=== PATIENT | female | born 1985 | race African-American/Black ===

== ENCOUNTER 2016-04-11 09:21 | Emergency (ER) | payer MEDICAID, OTHER ==
[~2016-04-11] VITALS: Ht 157.5 cm; Wt 52.2 kg
[~2016-04-11 09:21] MED LIST: NKM
[2016-04-11 09:50] VITALS: BP 104/62
[2016-04-11] MEDS ORDERED: Norco 5mg/325mg tab PO ONE (10:00)
--- NOTE | 2016-04-11 11:09 | Diagnostic Imaging Report ---
Indication: PAIN. Slip and fall injury earlier this morning. Right-sided neck pain Technique: Spiral acquisitions obtained through the cervical spine. No IV contrast utilized. Multiplanar reconstructions were generated. Total dose length product 244 mGycm. CTDIvol(s) mGy Comparison: None Findings: Bony alignment is normal. No prevertebral soft tissue swelling. No acute fractures. No dislocations. Vertebral body heights and disc spaces are preserved. No significant disc bulge or protrusion, spinal stenosis, or neural foraminal stenosis. The included extraspinal soft tissues are unremarkable. Impression: Negative The CT scanner at [facility] is accredited by the [employer] and the scans are performed using protocols designed to limit radiation exposure to as low as reasonably achievable to attain images of sufficient resolution adequate for diagnostic evaluation.
[2016-04-11] MEDS ORDERED: IBUPROFEN600 MG ORAL (11:42)
[2016-04-11] MEDS ORDERED: NORCO 5-325 TA1 EACH ORAL (11:42)
[2016-04-11 11:51] VITALS: BP 114/68
--- NOTE | 2016-04-11 12:05 | Diagnostic Imaging Report ---
Indication: PAIN Technique: Multiple views of the right ribs Comparison: None Findings: There are fractures of the posterior lateral ninth and 10th ribs. None acute fractures. No dislocations. No gross pneumothorax. Impression: Positive for right ninth and 10th rib fractures Findings discussed by phone with Dr. Natarajan in the emergency room at the time of interpretation
--- NOTE | 2016-04-11 14:45 | Emergency Room Report ---
History of Present Illness General Chief Complaint: Lower Back Pain or Injury Source: Patient Present Illness HPI 30-year-old female presents ED complaining of neck pain and right-sided rib pain. States at morning she had mechanical slip and fall in the shower. States she injured her neck and has pain over her right ribs. Denies LOC. Complaining of pain to her neck and right side of ribs. Pain as throbbing. 10 of 10. Worse with movement. Worse with deep breaths. No other aggravating or relieving factors. Denies any other injuries. Denies any other associated symptoms Allergies: Coded Allergies: No Known Allergies (Unverified , 11/26/13) Patient History Past Medical History: none Past Surgical History: none Pertinent Family History: none Social History: Denies: alcohol use, drug use, smoking Last Menstrual Period: 03/11/16 Now: No Immunizations: UTD Reviewed Nursing Documentation: PMH: Agreed, PSxH: Agreed Nursing Documentation-PMH Past Medical History: No Stated History Review of Systems All Other Systems: negative except mentioned in HPI Physical Exam Vital Signs Date Time Temp Pulse Resp B/P Pulse Ox O2 Delivery O2 Flow Rate FiO2 04/11/16 09:27 97.9 89 18 109/62 98 Room Air Sp02 EP Interpretation: reviewed, normal General Appearance: alert, GCS 15, non-toxic, mild distress Head: normocephalic Eyes: bilateral eye PERRL, bilateral eye normal inspection ENT: hearing grossly normal, normal pharynx, no angioedema, normal voice Neck: tender lateral, tender midline Respiratory: lungs clear, normal breath sounds, speaking full sentences, other - R sided rib pain TTP Cardiovascular #1: regular rate, rhythm, no edema Gastrointestinal: normal bowel sounds, non tender, soft, non-distended, no guarding, no rebound Rectal: deferred Genitourinary: no CVA tenderness Musculoskeletal: normal inspection Neurologic: alert, oriented x3, responsive, motor strength/tone normal, sensory intact, speech normal Psychiatric: normal inspection Skin: normal inspection Lymphatic: normal inspection Medical Decision Making Diagnostic Impression: Primary Impression: Rib fracture Qualified Codes: S22.41XA - Multiple fractures of ribs, right side, initial encounter for closed fracture Additional Impression: Fall Qualified Codes: W19.XXXA - Unspecified fall, initial encounter ER Course Hospital Course 30-year-old female presents to ED complaining of neck pain and right-sided rib pain status post fall in shower Differential diagnoses include: Fracture, dislocation, sprain, contusion Clinical course Patient placed on stretcher. After initial history and physical, I ordered pain medications and CT C-spine, x-rays of right rib series CT C-spine unremarkable. X-rays showed ninth and 10th rib fractures. No pneumothorax On reassessment pain is improved Diagnosis - rib fracture, fall Stable and discharged to home with prescription for Motrin, [place]. apply ice, keep elevated. weight bear as tolerated. Followup with PMD. Return to ED if symptoms recur or worsen Other X-Ray Diagnostic Results Other X-Ray Diagnostic Results : X-Ray Ordered: R rib series EP Interpretation: No Findings: no dislocation, no soft tissue swelling, other - 9th and 10th rib fractures Number of Views: 3 CT/MRI/US Diagnostic Results CT/MRI/US Diagnostic Results : Imaging Test Ordered: CT C spine Impression no acute process Last Vital Signs Date Time Temp Pulse Resp B/P Pulse Ox O2 Delivery O2 Flow Rate FiO2 04/11/16 11:51 85 14 114/68 97 Room Air 04/11/16 11:10 97.9 Disposition: HOME, SELF-CARE Condition: Stable Scripts Hydrocodone Bit/Acetaminophen 5-325* (NORCO 5-325*) 1 Each Tablet 1 TAB ORAL Q6H Y for For Pain, #10 TAB 0 Refills Prov: CHARLES LAMBERT M.D. 04/11/16 Ibuprofen* (MOTRIN*) 600 Mg Tablet 600 MG ORAL Q8H Y for For Pain, #30 TAB 0 Refills Prov: CHARLES LAMBERT M.D. 04/11/16 Departure Forms: Return to Work Return to Work Date: Apr 14, 2016 Work Restrictions: No Heavy Lifting Patient Instructions: Rib Fracture CHARLES LAMBERT M.D. Apr 11, 2016 14:45
== END 2016-04-11 11:54 | disposition home or self-care (01) ==
LOC: EMR 10:00
DX: S22.41XA Multiple fractures of ribs, right side, initial encounter for closed fracture (principal); W01.0XXA Fall on same level from slipping, tripping and stumbling without subsequent striking against object, initial encounter; Y92.012 Bathroom of single-family (private) house as the place of occurrence of the external cause
CPT/HCPCS: 72125; 81025; 99284

== ENCOUNTER 2016-06-25 10:12 | Emergency (ER) | payer BC, MEDICAID, OTHER ==
[~2016-06-25] VITALS: Ht 157.5 cm; Wt 54.4 kg
[~2016-06-25 10:12] MED LIST changes: +IBUPROFEN600 MG ORAL; +NORCO 5-325 TA1 EACH ORAL
--- NOTE | 2016-06-25 10:32 | Emergency Room Report ---
History of Present Illness General Chief Complaint: Upper Respiratory Illness Source: Patient Present Illness HPI Patient 31-year-old female presented after increased difficulty breathing cough. Patient gradual onset of symptoms. Patient reported having intermittent pain or chest worse with deep breath. She reported having associated chills. She reported having some productive cough. She had not been vomiting. She reported having some epigastric abdominal pain. She states she is not and has an IUD Allergies: Coded Allergies: No Known Allergies (Unverified , 11/26/13) Patient History Past Medical History: see triage record, old chart reviewed Last Menstrual Period: Mar 2016 Now: No - IUD cycle irregular Reviewed Nursing Documentation: PMH: Agreed, PSxH: Agreed Nursing Documentation-PMH Past Medical History: No Stated History Review of Systems All Other Systems: negative except mentioned in HPI Physical Exam Vital Signs Date Time Temp Pulse Resp B/P Pulse Ox O2 Delivery O2 Flow Rate FiO2 06/25/16 10:23 99.0 106 16 105/69 98 Room Air General Appearance: well appearing, no apparent distress, alert, GCS 15 Head: normocephalic, atraumatic ENT: hearing grossly normal, normal voice Neck: full range of motion, supple Respiratory: no respiratory distress, speaking full sentences Cardiovascular #1: normal inspection, regular rate, rhythm, no edema Gastrointestinal: normal inspection, non tender, soft Musculoskeletal: normal inspection, back normal, no calf tenderness Neurologic: normal inspection, alert, oriented x3, responsive, lead javascript developer III-XII nml as tested, normal gait Psychiatric: mood/affect normal Skin: no rash Medical Decision Making Diagnostic Impression: Primary Impression: Acute viral bronchitis ER Course Patient presented for cough. Differential diagnosis included but was not limited to bronchitis, pneumonia, pulmonary embolism, pericarditis, asthma, foreign body. Chest x-ray was ordered due to patient's symptoms. Chest X-Ray Diagnostic Results EP Interpretation: Yes Findings: no consolidation, no effusion, no pneumothorax, no acute cardiopulmonary disease Number of Views: 1 Last Vital Signs Date Time Temp Pulse Resp B/P Pulse Ox O2 Delivery O2 Flow Rate FiO2 06/25/16 10:23 99.0 106 16 105/69 98 Room Air Status: improved Disposition: HOME, SELF-CARE Condition: Stable Scripts Ibuprofen* (MOTRIN*) 600 Mg Tablet 600 MG ORAL Q8H Y for For Pain, #30 TAB 0 Refills Prov: Pawan Ramesh 06/25/16 Pawan Ramehs June 25, 2016 10:32
[2016-06-25] MEDS ORDERED: IBUPROFEN600 MG ORAL (11:03)
--- NOTE | 2016-06-25 11:11 | Diagnostic Imaging Report ---
Indication: Chest Pain Comparison: None A single view chest radiograph was obtained. Findings: Cardiomediastinal appearance is within normal limits for age. Pulmonary vascularity is appropriate. The diaphragmatic contour is smooth and costophrenic angles are sharp. No pleural effusions are identified. The bones are unremarkable. Impression: No acute findings
[2016-06-25 11:15] VITALS: BP_SYST 108; BP_SYST 128; BP_DIAS 70
== END 2016-06-25 11:15 | disposition home or self-care (01) ==
LOC: EMR 10:35
DX: J20.8 Acute bronchitis due to other specified organisms (principal); R07.1 Chest pain on breathing; Z97.5 Presence of (intrauterine) contraceptive device; R10.13 Epigastric pain
CPT/HCPCS: 71010; 99283

== ENCOUNTER 2016-09-09 13:37 | Emergency (ER) | payer SELFPAY ==
[~2016-09-09] VITALS: Ht 162.6 cm; Wt 54.4 kg
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
[2016-09-09 13:57] VITALS: BP 115/84
[2016-09-09] MEDS ORDERED: LORazepam Inj 2mg/ml 1ml IM ONE (14:00)
[2016-09-09] MEDS ORDERED: Haloperidol 5mg/ml Inj IM ONE (14:00)
[2016-09-09 14:15] VITALS: BP 137/68
[2016-09-09 14:30] VITALS: BP 121/67
[2016-09-09 14:45] VITALS: BP 120/67
[2016-09-09 14:56] LABS: BASOPHILS % (AUTO) 0.8 % (0.0-2.0); EOSINOPHILS % (AUTO) 1.1 % (0.0-3.0); LYMPHOCYTES % (AUTO) 21.6 % (20.0-45.0); MEAN CORPUSCULAR HEMOGLOBIN 31.6 PG (27.0-31.0); MEAN CORPUSCULAR HGB CONC 34.1 G/DL (32.0-36.0); MEAN CORPUSCULAR VOLUME 93 FL (80-99); MEAN PLATELET VOLUME 7.9 FL (6.5-10.1); MONOCYTES % (AUTO) 7.2 % (1.0-10.0); NEUTROPHILS % (AUTO) 69.5 % (45.0-75.0); PLATELET COUNT 215 K/UL (150-450); RED BLOOD COUNT 5.04 M/UL (4.20-5.40); RED CELL DISTRIBUTION WIDTH 11.2 % (11.6-14.8); WHITE BLOOD COUNT 12.9 K/UL (4.8-10.8)
[2016-09-09 15:09] LABS: ACETAMINOPHEN < 10 ug/mL (10-30); ALANINE AMINOTRANSFERASE 8 U/L (3-33); ALBUMIN/GLOBULIN RATIO 1.5 (1.0-2.7); ALCOHOL < 10 mg/dL; ANION GAP 14 (5-15); ASPARTATE AMINO TRANSFERASE 18 U/L (5-40); CALCIUM 9.2 mg/dL (8.6-10.2); CARBON DIOXIDE 20 mEQ/L (20-30); CHLORIDE 103 mEQ/L (98-107); CREATININE 0.9 mg/dL (0.5-0.9); GLOMERULAR FILTRATION RATE > 60 mL/min (>60); HEMOLYSIS 6; POTASSIUM 3.5 mEQ/L (3.4-4.9); SODIUM 137 mEQ/L (135-145); TOTAL PROTEIN 7.7 g/dL (6.6-8.7)
[2016-09-09 15:45] LABS: BILIRUBIN,DIRECT 0.2 mg/dL (0.1-0.3)
[2016-09-09 17:11] VITALS: BP 105/79
[2016-09-09 17:54] LABS: APPEARANCE,URINE CLEAR; KETONES,URINE 2+ (NEGATIVE); LEUKOCYTE ESTERASE ,URINE 3+ (NEGATIVE); NITRITE,URINE NEGATIVE (NEGATIVE); PH,URINE 5 (4.5-8.0); PROTEIN,URINE 2+ (NEGATIVE); UROBILINOGEN,URINE 1 MG/DL (0.0-1.0)
[2016-09-09 18:16] LABS: BACTERIA,URINE FEW /HPF; RBC,URINE 0-2 /HPF (0 - 2); SQUAMOUS EPITHELIAL CELL,UR FEW /LPF (NONE/OCC)
[2016-09-09 20:30] VITALS: BP 112/82
== END 2016-09-09 20:30 ==
LOC: EDBD 13:37 → EMR 14:56
DX: F91.9 Conduct disorder, unspecified (principal); F31.9 Bipolar disorder, unspecified; F12.10 Cannabis abuse, uncomplicated; Z78.1 Physical restraint status
CPT/HCPCS: 36415; 80053; 80300; 81003; 81025; 82248; 85025; 96372; 99285; G0480; J1630; 80329

== ENCOUNTER 2017-11-22 20:05 | Emergency (ER) | payer SELFPAY ==
[~2017-11-22] VITALS: Ht 157.5 cm; Wt 58.1 kg
--- NOTE | 2017-11-22 20:45 | Emergency Room Report ---
History of Present Illness General Chief Complaint: Abdominal Pain Source: Patient Present Illness HPI Patient presents with nausea and vomiting. She ran out of her Zyprexa and has been feeling agitated. In response she took 4 of her Wellbutrin earlier today. This caused her to vomit. She took the pills at 1600. She did not want to harm herself. Her doctor told her that if Wellbutrin one pill wasn't working to take a second one. She took 3 more. She says Zyprexa usually keeps her from being manic. She started feeling manic today and started feeling she wanted to throw things, hit things and break things. She denies homicidal ideation. She states she's not been eating well but has been sleeping without difficulty. She rates the abdominal pain as 4/10, but states this is more nausea. Patient has an IUD in hasn't had a period for several months. She doesn't believe she is at this time. No fevers, chills, headache, change in vision, rashes, cough, sore throat, diarrhea, dysuria. Allergies: Coded Allergies: No Known Allergies (Unverified , 11/26/13) Patient History Past Medical History: see triage record Social History: Reports: smoking, drug use - THC; Denies: alcohol use Social History Narrative Lives with her aunt Last Menstrual Period: IUD Now: No : 3 Para: 3 Reviewed Nursing Documentation: PMH: Agreed; PSxH: Agreed Nursing Documentation-PMH History Of Psychiatric Problem: Yes - Bipolar Disorder Review of Systems All Other Systems: negative except mentioned in HPI Physical Exam Vital Signs Date Time Temp Pulse Resp B/P (MAP) Pulse Ox O2 Delivery O2 Flow Rate FiO2 11/22/17 20:18 97.5 125 15 99/55 95 Room Air 97.5 Sp02 EP Interpretation: reviewed, normal General Appearance: well appearing, no apparent distress, GCS 15 Head: normocephalic Eyes: bilateral eye normal inspection, bilateral eye PERRL, bilateral eye Scleral Injection ENT: moist mucus membranes Neck: supple Respiratory: lungs clear, normal breath sounds Cardiovascular #1: regular rate, rhythm Cardiovascular #2: 2+ radial (R) Gastrointestinal: normal inspection, normal bowel sounds, non tender, no mass, non-distended, scaphoid Musculoskeletal: back normal, gait/station normal, normal range of motion Neurologic: alert, oriented x3, grossly normal Psychiatric: mood/affect normal, no suicidal/homicidal ideation Skin: normal inspection, warm/dry Medical Decision Making Diagnostic Impression: Primary Impression: Medication overdose Qualified Codes: T50.904A - Poisoning by unspecified drugs, medicaments and biological substances, undetermined, initial encounter Additional Impressions: Hypokalemia Bipolar disorder Qualified Codes: F31.62 - Bipolar disorder, current episode mixed, moderate ER Course Patient presents with taking excessive Wellbutrin and history of bipolar disorder that she feels unstable. I differential includes excessive antipsychotic, arrhythmia, regnancy, gastroenteritis, gastritis, pancreatitis amongst others. Patient will be evaluated with EKG, labs. In addition to that she'll be treated with IV hydration, Pepcid and Zofran. Labs significant for CBC with slightly high WBC. CMP with low potassium. Tox + THC. Preg neg. Potassium ordered. No more nausea. Patient signed out to Dr. Agarwal. Laboratory Tests Test 11/22/17 20:45 11/22/17 21:32 White Blood Count 11.9 K/UL (4.8-10.8) H Red Blood Count 4.70 M/UL (4.20-5.40) Hemoglobin 15.0 G/DL (12.0-16.0) Hematocrit 43.2 % (37.0-47.0) Mean Corpuscular Volume 92 FL (80-99) Mean Corpuscular Hemoglobin 31.9 PG (27.0-31.0) H Mean Corpuscular Hemoglobin Concent 34.7 G/DL (32.0-36.0) Red Cell Distribution Width 11.1 % (11.6-14.8) L Platelet Count 248 K/UL (150-450) Mean Platelet Volume 7.0 FL (6.5-10.1) Neutrophils (%) (Auto) 69.9 % (45.0-75.0) Lymphocytes (%) (Auto) 21.3 % (20.0-45.0) Monocytes (%) (Auto) 6.0 % (1.0-10.0) Eosinophils (%) (Auto) 1.3 % (0.0-3.0) Basophils (%) (Auto) 1.5 % (0.0-2.0) Sodium Level 138 MMOL/L (136-145) Potassium Level 2.9 MMOL/L (3.5-5.1) L Chloride Level 104 MMOL/L (98-107) Carbon Dioxide Level 21 MMOL/L (21-32) Anion Gap 13 mmol/L (5-15) Blood Urea Nitrogen 12 mg/dL (7-18) Creatinine 1.3 MG/DL (0.55-1.30) Estimate Glomerular Filtration Rate 57.6 mL/min (>60) Glucose Level 160 MG/DL (74-106) H Calcium Level 9.1 MG/DL (8.5-10.1) Total Bilirubin 0.8 MG/DL (0.2-1.0) Aspartate Amino Transferase (AST) 23 U/L (15-37) Alanine Aminotransferase (ALT) 26 U/L (12-78) Alkaline Phosphatase 95 U/L (46-116) Total Creatine Kinase 197 U/L (26-308) Total Protein 8.4 G/DL (6.4-8.2) H Albumin 4.3 G/DL (3.4-5.0) Globulin 4.1 g/dL Albumin/Globulin Ratio 1.0 (1.0-2.7) Salicylates Level 5.0 ug/mL (2.8-20) Acetaminophen Level < 2 MCG/ML (10-30) L Serum Alcohol < 3 mg/dL Urine Color [place]aye Urine Appearance Slightly cloudy Urine pH 5 (4.5-8.0) Urine Specific [place] 1.030 (1.005-1.035) Urine Protein 2+ (NEGATIVE) H Urine Glucose (UA) Negative (NEGATIVE) Urine Ketones 1+ (NEGATIVE) H Urine Blood Negative (NEGATIVE) Urine Nitrite Negative (NEGATIVE) Urine Bilirubin Negative (NEGATIVE) Urine Ictotest Negative (NEGATIVE) Urine Urobilinogen Normal MG/DL (0.0-1.0) Urine Leukocyte Esterase 1+ (NEGATIVE) H Urine RBC 0-2 /HPF (0 - 2) Urine WBC 2-4 /HPF (0 - 2) Urine Squamous Epithelial Cells Many /LPF (NONE/OCC) H Urine Amorphous Sediment Moderate /LPF (NONE) H Urine Bacteria Moderate /HPF (NONE) H Urine HCG, Qualitative Negative (NEGATIVE) Urine Opiates Screen Negative (NEGATIVE) Urine Barbiturates Screen Negative (NEGATIVE) Phencyclidine (PCP) Screen Negative (NEGATIVE) Urine Amphetamines Screen Negative (NEGATIVE) Urine Benzodiazepines Screen Negative (NEGATIVE) Urine Cocaine Screen Negative (NEGATIVE) Urine Marijuana (THC) Screen Positive (NEGATIVE) H EKG Diagnostic Results Rate: normal Rhythm: NSR ST Segments: no acute changes Rhythm Strip Diag. Results EP Interpretation: yes Rhythm: NSR, no PVC's, no ectopy Last Vital Signs Date Time Temp Pulse Resp B/P (MAP) Pulse Ox O2 Delivery O2 Flow Rate FiO2 11/22/17 23:27 98.0 90 18 110/67 100 Room Air Status: improved Scripts Olanzapine (ZYPREXA) 15 Mg Tablet 15 MG ORAL DAILY, #30 TAB 0 Refills Prov: Kirk Agarwal M.D. 11/22/17 Livan Melendrez M.D. Nov 22, 2017 20:44
[2017-11-22 20:55] VITALS: BP 89/62
[2017-11-22 21:16] LABS: BASOPHILS % (AUTO) 1.5 % (0.0-2.0); EOSINOPHILS % (AUTO) 1.3 % (0.0-3.0); HEMATOCRIT 43.2 % (37.0-47.0); LYMPHOCYTES % (AUTO) 21.3 % (20.0-45.0); MEAN CORPUSCULAR VOLUME 92 FL (80-99); NEUTROPHILS % (AUTO) 69.9 % (45.0-75.0); PLATELET COUNT 248 K/UL (150-450); RED CELL DISTRIBUTION WIDTH 11.1 % (11.6-14.8); WHITE BLOOD COUNT 11.9 K/UL (4.8-10.8)
[2017-11-22 21:54] LABS: ANION GAP 13 mmol/L (5-15); BLOOD UREA NITROGEN 12 mg/dL (7-18); CALCIUM 9.1 MG/DL (8.5-10.1); CARBON DIOXIDE 21 MMOL/L (21-32); CHLORIDE 104 MMOL/L (98-107); CREATININE 1.3 MG/DL (0.55-1.30); POTASSIUM 2.9 MMOL/L (3.5-5.1); SODIUM 138 MMOL/L (136-145)
[2017-11-22 22:00] LABS: ALANINE AMINOTRANSFERASE 26 U/L (12-78); ALBUMIN 4.3 G/DL (3.4-5.0); ALKALINE PHOSPHATASE 95 U/L (46-116); ASPARTATE AMINO TRANSFERASE 23 U/L (15-37); BILIRUBIN,TOTAL 0.8 MG/DL (0.2-1.0); CREATINE KINASE 197 U/L (26-308)
[2017-11-22 22:04] LABS: APPEARANCE,URINE SLIGHTLY CLOUDY; BILIRUBIN, URINE NEGATIVE (NEGATIVE); COLOR,URINE AMBER; GLUCOSE, URINE (UA) NEGATIVE (NEGATIVE); KETONES,URINE 1+ (NEGATIVE); LEUKOCYTE ESTERASE ,URINE 1+ (NEGATIVE); NITRITE,URINE NEGATIVE (NEGATIVE); PH,URINE 5 (4.5-8.0); PROTEIN,URINE 2+ (NEGATIVE); UROBILINOGEN,URINE NORMAL MG/DL (0.0-1.0)
[2017-11-22] MEDS ORDERED: ZYPREXA15 MG ORAL (23:13)
--- NOTE | 2017-11-22 23:16 | Emergency Room Report ---
Physical Exam Vital Signs Date Time Temp Pulse Resp B/P (MAP) Pulse Ox O2 Delivery O2 Flow Rate FiO2 11/22/17 20:18 97.5 125 15 99/55 95 Room Air 97.5 Medical Decision Making Diagnostic Impression: Primary Impression: Medication overdose Qualified Codes: T50.904A - Poisoning by unspecified drugs, medicaments and biological substances, undetermined, initial encounter Additional Impressions: Bipolar disorder Qualified Codes: F31.62 - Bipolar disorder, current episode mixed, moderate Hypokalemia ER Course Previous MD requested dispo if stable.] For me, patient has been alert and oriented and cooperative. She is requesting refill of her Zyprexa (this is why she came to ED.) Zyprexa written. Return if new or worse symptoms. Take medication as prescribed. Emergency departments do not prescribe medications for chronic conditions. You need to see a primary physician. Look on your Medical card for the doctor/ clinic name and/or phone number to find one. Here are some other options: [facility], [facility], [facility], [facility], [facility]. Also for psychiatric care, mental health clinics: [facility], [facility], [facility]. [place] [address] [facility]. [phone] Last Vital Signs Date Time Temp Pulse Resp B/P (MAP) Pulse Ox O2 Delivery O2 Flow Rate FiO2 11/22/17 20:55 97.5 96 20 89/62 96 Room Air 97.5 Status: improved Disposition: HOME, SELF-CARE Condition: Stable Scripts Olanzapine (ZYPREXA) 15 Mg Tablet 15 MG ORAL DAILY, #30 TAB 0 Refills Prov: Kirk Agarwal M.D. 11/22/17 Referrals: NOT CHOSEN IPA/,REFERRING (PCP) Patient Instructions: Psychosis iKrk Agarwal M.D. Nov 22, 2017 23:16
[2017-11-22 23:27] VITALS: BP 110/67
--- NOTE | 2017-11-24 14:45 | Cardiology Report ---
APPROVED REPORT EKG Measurement Heart [id number] DC [id number] [id number] Normal sinus rhythm Possible Left atrial enlargement Nonspecific T wave abnormality Abnormal ECG
== END 2017-11-22 23:27 | disposition home or self-care (01) ==
LOC: EMR 22:19
DX: T43.291A Poisoning by other antidepressants, accidental (unintentional), initial encounter (principal); R11.2 Nausea with vomiting, unspecified; E87.6 Hypokalemia; F31.62 Bipolar disorder, current episode mixed, moderate; Y92.099 Unspecified place in other non-institutional residence as the place of occurrence of the external cause
CPT/HCPCS: 36415; 80053; 80307; 81003; 81025; 82550; 85025; 87086; 93005; 96361; 96374; 96375; 99284; G0480; J2405; J3480; S0028; 80329; J8499

== ENCOUNTER 2019-01-18 15:05 | Emergency (ER) | payer MEDICAID ==
[~2019-01-18] VITALS: Ht 157.5 cm; Wt 56.7 kg
[~2019-01-18 15:05] MED LIST changes: +ZYPREXA15 MG ORAL
[2019-01-18 15:15] VITALS: BP 108/75
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
--- NOTE | 2019-01-18 15:40 | Emergency Room Report ---
History of Present Illness General Chief Complaint: Abdominal Pain Source: Patient Present Illness HPI Patient presents with complaints of persistent nausea vomiting since 5 in the morning Reports that she had drank alcohol the night before which she usually does not do since then has had increased nausea vomiting some mild epigastric cramping Denies any chest pain or shortness of breath denies any lower abdominal pain denies any fevers denies any focal weakness Allergies: Coded Allergies: No Known Allergies (Unverified , 11/26/13) Patient History Past Medical History: see triage record Reviewed Nursing Documentation: PMH: Agreed; PSxH: Agreed Nursing Documentation-PMH Past Medical History: No Stated History Review of Systems All Other Systems: negative except mentioned in HPI Physical Exam Vital Signs Date Time Temp Pulse Resp B/P (MAP) Pulse Ox O2 Delivery O2 Flow Rate FiO2 01/18/19 15:08 98.2 90 18 111/70 (84) 99 Room Air Sp02 EP Interpretation: reviewed, normal General Appearance: no apparent distress Head: normocephalic, atraumatic Eyes: bilateral eye PERRL, bilateral eye EOMI ENT: hearing grossly normal, EOM grossly intact Neck: supple Respiratory: lungs clear, no retraction, no accessory muscle use Cardiovascular #1: regular rate, rhythm Gastrointestinal: soft - Some subjective discomfort pointing to the epigastric area otherwise soft and benign abdominal exam Genitourinary: no CVA tenderness Musculoskeletal: normal inspection Neurologic: alert, oriented x3 Psychiatric: normal inspection Skin: no rash Lymphatic: normal inspection Medical Decision Making Last Vital Signs Date Time Temp Pulse Resp B/P (MAP) Pulse Ox O2 Delivery O2 Flow Rate FiO2 01/18/19 15:08 98.2 90 18 111/70 (84) 99 Room Air Deanna Askew DO Jan 18, 2019 15:40
[2019-01-18 15:52] LABS: APPEARANCE,URINE CLEAR; BILIRUBIN, URINE NEGATIVE (NEGATIVE); COLOR,URINE PALE YELLOW; GLUCOSE, URINE (UA) NEGATIVE (NEGATIVE); KETONES,URINE 4+ (NEGATIVE); LEUKOCYTE ESTERASE ,URINE NEGATIVE (NEGATIVE); NITRITE,URINE NEGATIVE (NEGATIVE); PH,URINE 5 (4.5-8.0); PROTEIN,URINE 1+ (NEGATIVE); UROBILINOGEN,URINE NORMAL MG/DL (0.0-1.0)
[2019-01-18] MEDS ORDERED: LORazepam Inj 2mg/ml 1ml IV ONE (16:00)
[2019-01-18 16:02] LABS: ANION GAP 19 mmol/L (5-15); BLOOD UREA NITROGEN 16 mg/dL (7-18); CALCIUM 9.4 MG/DL (8.5-10.1); CARBON DIOXIDE 16 MMOL/L (21-32); CHLORIDE 102 MMOL/L (98-107); SODIUM 137 MMOL/L (136-145)
[2019-01-18 16:05] LABS: HEMATOCRIT 43.1 % (37.0-47.0); MEAN CORPUSCULAR VOLUME 91 FL (80-99); PLATELET COUNT 212 K/UL (150-450); RED BLOOD COUNT 4.71 M/UL (4.20-5.40); RED CELL DISTRIBUTION WIDTH 11.1 % (11.6-14.8); WHITE BLOOD COUNT 17.5 K/UL (4.8-10.8)
[2019-01-18 16:08] LABS: ALANINE AMINOTRANSFERASE 53 U/L (12-78); ALBUMIN 4.7 G/DL (3.4-5.0); ALBUMIN/GLOBULIN RATIO 1.2 (1.0-2.7); ALKALINE PHOSPHATASE 94 U/L (46-116); ASPARTATE AMINO TRANSFERASE 58 U/L (15-37); BILIRUBIN,TOTAL 0.8 MG/DL (0.2-1.0)
[2019-01-18] MEDS ORDERED: Omnipaque-300 100ml vial INJ PRN (17:30)
[2019-01-18 17:40] VITALS: BP 96/67
--- NOTE | 2019-01-18 18:57 | Diagnostic Imaging Report ---
Clinical Indication: Periumbilical pain Technique: No oral contrast utilized, per emergency room physician request IV administration nonionic contrast. Venous phase spiral acquisition obtained through the abdomen and pelvis. Multiplanar reconstructions were generated. Total dose length product for 162 mGycm. CTDIvol(s) 8 mGy. Dose reduction achieved using automated exposure control Comparison: none Findings: The appendix is only questionably demonstrated, probably normal. No evidence of colonic diverticulosis or diverticulitis. Left upper quadrant jejunal loops demonstrate wall thickening. No free or loculated intraperitoneal gas or fluid. No small bowel distention. Distal esophagus, stomach, duodenum are unremarkable. Liver demonstrates some focal fatty change in the usual location adjacent to the falciform ligament. The gallbladder, bile ducts, pancreas, spleen, adrenals are unremarkable. The kidneys demonstrate bilateral subcentimeter low-attenuation lesions which are too small to characterize. No retroperitoneal or mesenteric mass or adenopathy. No pelvic mass or adenopathy. There are prominent paraovarian varices. The left ovarian vein is dilated. There is an intrauterine device. The bladder is unremarkable. The bones are unremarkable except for some transitional lumbosacral anatomy. The included lung bases are clear Impression: Thickening of the wall of the proximal jejunum, could indicate enteritis. Correlate with clinical findings Prominent paraovarian varices, dilated left ovarian vein. This suggests ovarian venous insufficiency, which can be a cause of pelvic congestion syndrome. Correlate with clinical findings Intrauterine device Subcentimeter low-attenuation renal lesions, too small to characterize, most likely and I simple cysts Focal fatty change in the liver This agrees with the preliminary interpretation provided overnight by [facility] telerad[facility] service. The CT scanner at [facility] is accredited by the [employer] and the scans are performed using protocols designed to limit radiation exposure to as low as reasonably achievable to attain images of sufficient resolution adequate for diagnostic evaluation.
--- NOTE | 2019-01-18 19:06 | NUR ---
HAND-OFF: Report given to Nereida ENGLISH.
[2019-01-18] MEDS ORDERED: ZOFRAN4 M1 ORAL (20:05)
[2019-01-18 20:18] VITALS: BP 96/67
--- NOTE | 2019-01-18 20:18 | NUR ---
ER DISCHARGE NOTE: Patient is cleared to be discharged per ERMD, pt is aox4, on room air, with stable vital signs. pt was given dc and prescription instructions, pt was able to verbalize understanding, pt id band and iv site removed without complications. pt is able to ambulate with steady gait. pt took all belongings.
== END 2019-01-18 20:18 | disposition home or self-care (01) ==
LOC: EDUNIT# 15:05 → EDBD 15:05 → EMR 16:58
DX: R11.2 Nausea with vomiting, unspecified (principal)
CPT/HCPCS: 36415; 74177; 80053; 80307; 81003; 81025; 83690; 85007; 85025; 96361; 96374; 96375; J2405; J7030; Q9967; Z7502; 99284

== ENCOUNTER 2019-08-08 07:58 | Emergency (ER) | payer SELFPAY ==
[~2019-08-08] VITALS: Ht 167.6 cm; Wt 56.7 kg
[~2019-08-08 07:58] MED LIST changes: +ZOFRAN4 M1 ORAL
[2019-08-08 08:04] VITALS: BP 128/76
[2019-08-08] MEDS ORDERED: Metoclopramide 10mg/2ml Inj IVP ONE (08:30)
[2019-08-08] MEDS ORDERED: DiphenhydrAMINE 50mg/ml Inj IVP ONE (08:30)
[2019-08-08] MEDS ORDERED: LORazepam Inj 2mg/ml 1ml IV ONE (08:30)
[2019-08-08 09:03] LABS: BASOPHILS % (AUTO) 1.9 % (0.0-2.0); HEMATOCRIT 40.7 % (37.0-47.0); HEMOGLOBIN 13.7 G/DL (12.0-16.0); LYMPHOCYTES % (AUTO) 17.2 % (20.0-45.0); MEAN CORPUSCULAR VOLUME 95 FL (80-99); MONOCYTES % (AUTO) 8.6 % (1.0-10.0); NEUTROPHILS % (AUTO) 71.3 % (45.0-75.0); PLATELET COUNT 241 K/UL (150-450); RED BLOOD COUNT 4.28 M/UL (4.20-5.40); RED CELL DISTRIBUTION WIDTH 11.4 % (11.6-14.8); WHITE BLOOD COUNT 10.8 K/UL (4.8-10.8)
[2019-08-08 09:20] LABS: ALANINE AMINOTRANSFERASE 31 U/L (12-78); ALBUMIN 3.9 G/DL (3.4-5.0); ALBUMIN/GLOBULIN RATIO 1.1 (1.0-2.7); ALKALINE PHOSPHATASE 90 U/L (46-116); ANION GAP 12 mmol/L (5-15); ASPARTATE AMINO TRANSFERASE 31 U/L (15-37); BILIRUBIN,TOTAL 0.6 MG/DL (0.2-1.0); BLOOD UREA NITROGEN 12 mg/dL (7-18); CALCIUM 8.3 MG/DL (8.5-10.1); CARBON DIOXIDE 22 MMOL/L (21-32); CHLORIDE 105 MMOL/L (98-107); POTASSIUM 3.7 MMOL/L (3.5-5.1); SODIUM 139 MMOL/L (136-145)
[2019-08-08 09:31] LABS: APPEARANCE,URINE CLEAR; BILIRUBIN, URINE NEGATIVE (NEGATIVE); COLOR,URINE PALE YELLOW; GLUCOSE, URINE (UA) NEGATIVE (NEGATIVE); KETONES,URINE NEGATIVE (NEGATIVE); LEUKOCYTE ESTERASE ,URINE 1+ (NEGATIVE); NITRITE,URINE NEGATIVE (NEGATIVE); PH,URINE 9 (4.5-8.0); PROTEIN,URINE 1+ (NEGATIVE); UROBILINOGEN,URINE NORMAL MG/DL (0.0-1.0)
--- NOTE | 2019-08-08 09:49 | Emergency Room Report ---
History of Present Illness General Chief Complaint: Abdominal Pain Source: Patient, EMS Present Illness HPI Patient presents with complaints of lower mid suprapubic abdominal pain increased nausea vomiting patient reports that she drank heavier than usual last night taking ' shots of alcohol' Denies any chest pain denies any back or flank pain denies any dysuria or frequency denies any fall or trauma Allergies: Coded Allergies: No Known Allergies (Unverified , 02/20/19) COVID-19 Screening Contact w/high risk pt: No Recent Travel to affected area: No Experienced COVID-19 symptoms?: No COVID-19 Testing performed THERMAL TECHNICIAN: No Patient History Past Medical History: see triage record Now: No Reviewed Nursing Documentation: PMH: Agreed; PSxH: Agreed Nursing Documentation-PMH History Of Psychiatric Problem: Yes - Bipolar Review of Systems All Other Systems: negative except mentioned in HPI Physical Exam Vital Signs Date Time Temp Pulse Resp B/P (MAP) Pulse Ox O2 Delivery O2 Flow Rate FiO2 08/08/19 07:53 96.1 82 128/76 (93) 98 Room Air 08/08/19 08:02 18 Sp02 EP Interpretation: reviewed, normal General Appearance: mild distress - Appears nauseated and uncomfortable Head: normocephalic, atraumatic Eyes: bilateral eye PERRL, bilateral eye EOMI ENT: hearing grossly normal, normal pharynx, TMs + canals normal, uvula midline Neck: full range of motion, supple, no meningismus, no bony tend Respiratory: lungs clear, normal breath sounds, no rhonchi, no respiratory distress, no retraction, no accessory muscle use Cardiovascular #1: normal peripheral pulses, regular rate, rhythm, no edema, no gallop, no JVD, no murmur Gastrointestinal: normal bowel sounds, non tender, soft, no mass, no organomegaly, non-distended, no guarding, no hernia, no pulsatile mass, no rebound Genitourinary: no CVA tenderness Musculoskeletal: normal inspection Neurologic: motor strength/tone normal, sock knitter III-XII nml as tested, oriented x3 , sensory intact, responsive Psychiatric: mood/affect normal Skin: no rash Lymphatic: normal inspection, no adenopathy Medical Decision Making Diagnostic Impression: Primary Impression: Vomiting ER Course With the patient's history and examination, multiple differentials considered, including but not limited to , ectopic , ovarian torsion, gastritis, cholecystitis, pancreatitis, appendicitis Patient's blood work is at baseline levels urine sample does show positive marijuana small amount of blood no obvious infectious process Patient has continued to do well feels significantly improved and at this time will have initial conservative outpatient trial return with any changes or concerns Labs Test 08/08/19 08:40 08/08/19 09:20 White Blood Count 10.8 K/UL (4.8-10.8) Red Blood Count 4.28 M/UL (4.20-5.40) Hemoglobin 13.7 G/DL (12.0-16.0) Hematocrit 40.7 % (37.0-47.0) Mean Corpuscular Volume 95 FL (80-99) Mean Corpuscular Hemoglobin 32.1 PG (27.0-31.0) Mean Corpuscular Hemoglobin Concent 33.8 G/DL (32.0-36.0) Red Cell Distribution Width 11.4 % (11.6-14.8) Platelet Count 241 K/UL (150-450) Mean Platelet Volume 7.3 FL (6.5-10.1) Neutrophils (%) (Auto) 71.3 % (45.0-75.0) Lymphocytes (%) (Auto) 17.2 % (20.0-45.0) Monocytes (%) (Auto) 8.6 % (1.0-10.0) Eosinophils (%) (Auto) 1.0 % (0.0-3.0) Basophils (%) (Auto) 1.9 % (0.0-2.0) Sodium Level 139 MMOL/L (136-145) Potassium Level 3.7 MMOL/L (3.5-5.1) Chloride Level 105 MMOL/L (98-107) Carbon Dioxide Level 22 MMOL/L (21-32) Anion Gap 12 mmol/L (5-15) Blood Urea Nitrogen 12 mg/dL (7-18) Creatinine 1.0 MG/DL (0.55-1.30) Estimat Glomerular Filtration Rate > 60 mL/min (>60) Glucose Level 97 MG/DL (74-106) Calcium Level 8.3 MG/DL (8.5-10.1) Total Bilirubin 0.6 MG/DL (0.2-1.0) Aspartate Amino Transf (AST/SGOT) 31 U/L (15-37) Alanine Aminotransferase (ALT/SGPT) 31 U/L (12-78) Alkaline Phosphatase 90 U/L (46-116) Total Protein 7.6 G/DL (6.4-8.2) Albumin 3.9 G/DL (3.4-5.0) Globulin 3.7 g/dL Albumin/Globulin Ratio 1.1 (1.0-2.7) Lipase 104 U/L (73-393) Serum Alcohol < 3 mg/dL Urine Color Pale yellow Urine Appearance Clear Urine pH 9 (4.5-8.0) Urine Specific [place] 1.015 (1.005-1.035) Urine Protein 1+ (NEGATIVE) Urine Glucose (UA) Negative (NEGATIVE) Urine Ketones Negative (NEGATIVE) Urine Blood 3+ (NEGATIVE) Urine Nitrite Negative (NEGATIVE) Urine Bilirubin Negative (NEGATIVE) Urine Urobilinogen Normal MG/DL (0.0-1.0) Urine Leukocyte Esterase 1+ (NEGATIVE) Urine RBC 2-4 /HPF (0 - 2) Urine WBC 0-2 /HPF (0 - 2) Urine Squamous Epithelial Cells Few /LPF (NONE/OCC) Urine Amorphous Sediment Few /LPF (NONE) Urine Bacteria Few /HPF (NONE) Urine Mucus Few /LPF (NONE/OCC) Urine HCG, Qualitative Negative (NEGATIVE) Urine Opiates Screen Negative (NEGATIVE) Urine Barbiturates Screen Negative (NEGATIVE) Phencyclidine (PCP) Screen Negative (NEGATIVE) Urine Amphetamines Screen Negative (NEGATIVE) Urine Benzodiazepines Screen Negative (NEGATIVE) Urine Cocaine Screen Negative (NEGATIVE) Urine Marijuana (THC) Screen Positive (NEGATIVE) Last Vital Signs Date Time Temp Pulse Resp B/P (MAP) Pulse Ox O2 Delivery O2 Flow Rate FiO2 08/08/19 08:04 96.1 71 18 128/76 98 Room Air Status: improved Disposition: HOME, SELF-CARE Condition: Improved Scripts Famotidine* (Pepcid 20mg tablet*) 20 Mg Tablet 20 MG ORAL DAILY, #20 TAB 0 Refills Prov: Deanna Askew DO 08/08/19 Ondansetron* (ZOFRAN*) 4 Mg Tablet 4 MG ORAL Q6H PRN for Nausea & Vomiting, #10 TAB Prov: Deanna Askew DO 08/08/19 Referrals: NOT CHOSEN IPA/MD,REFERRING (PCP) Additional Instructions: Patient is provided with the discharge instructions notified to follow up with primary doctor in the next 2-3 days otherwise return to the er with any worsening symptoms. Please note that this report is being documented using [employer] technology. This can lead to erroneous entry secondary to incorrect interpretation by the dictating instrument. Deanna Askew DO Aug 08, 2019 09:49
[2019-08-08 11:45] VITALS: BP 126/79
[2019-08-08] MEDS ORDERED: FAMOTIDINE20 MG ORAL (11:49)
[2019-08-08] MEDS ORDERED: ZOFRAN4 M3 ORAL (11:49)
[2019-08-08 11:53] VITALS: BP 128/76
== END 2019-08-08 11:53 | disposition home or self-care (01) ==
LOC: EDBD 07:58 → EMR 08:29
DX: R11.10 Vomiting, unspecified (principal); R10.9 Unspecified abdominal pain; F31.9 Bipolar disorder, unspecified
CPT/HCPCS: 36415; 80053; 80307; 81003; 81025; 83690; 85025; 96361; 96374; 96375; 99284; G0480; J1200; J2765; J7030